=== PATIENT | male | born 1950 | race Caucasian/White ===

== ENCOUNTER 2017-02-17 18:23 | Emergency (ER) | payer MEDICAID ==
[~2017-02-17] VITALS: Ht 177.8 cm; Wt 90.9 kg
[~2017-02-17 18:23] MED LIST: CITA-311 PO; EMOL200L TP; FAMO20TA8 PO; FOLI1TAB16 PO; HYDR-569 PO; LACT-28 PO; LACTC PO; MIDO5TAB PO; MULT-1179 PO; NYSPWD TP; THI100T PO
[2017-02-17] MEDS ORDERED: normal saline 1000ML IV soln IVB ONE (20:40)
[2017-02-17 20:51] LABS: BASOPHILS % (AUTO) 0.4 % (0-1); EOSINOPHILS # (AUTO) 0.1 X10'3 (0-0.9); EOSINOPHILS % (AUTO) 1.1 % (0-6); HEMATOCRIT 37.9 % (42.0-52.0); HEMOGLOBIN 12.7 g/dl (14.0-17.9); LYMPHOCYTES # (AUTO) 3.9 X10'3 (1.1-4.8); LYMPHOCYTES % (AUTO) 60.7 % (21-51); MEAN CORPUSCULAR HEMOGLOBIN 33.8 PG (27.0-31.0); MEAN CORPUSCULAR HGB CONC 33.6 % (33.0-36.5); MEAN CORPUSCULAR VOLUME 100.7 FL (78-98); MONOCYTES # (AUTO) 0.5 X10'3 (0-0.9); MONOCYTES % (AUTO) 8.4 % (2-12); NEUTROPHILS # (AUTO) 1.9 X10'3 (1.8-7.7); NEUTROPHILS % (AUTO) 29.4 % (42-75); PLATELET COUNT 183 X10'3 (140-440); RED BLOOD COUNT 3.76 X10'6 (4.70-6.10); RED CELL DISTRIBUTION WIDTH 13.2 % (11.5-14.5); WHITE BLOOD COUNT 6.4 X10'3 (4.5-11.0)
[2017-02-17 21:01] LABS: ALANINE AMINOTRANSFERASE 44 U/L (12-78); ALBUMIN 3.5 G/DL (3.4-5.0); ALBUMIN/GLOBULIN RATIO 0.9 (1.1-1.5); ALKALINE PHOSPHATASE 91 IU/L (46-116); ANION GAP 10 (8-16); ASPARTATE AMINO TRANSFERASE 72 U/L (10-37); BILIRUBIN,TOTAL 0.3 MG/DL (0.1-1.0); BLOOD UREA NITROGEN 7 MG/DL (7-18); BUN/CREATININE RATIO 5.6 (5.4-32.0); CALCIUM 8.4 MG/DL (8.5-10.1); CHLORIDE 106 MMOL/L (99-107); CREATININE 1.26 MG/DL (0.60-1.10); GLUCOSE 99 MG/DL (70-104); POTASSIUM 4.3 MMOL/L (3.5-5.1); SODIUM 140 MMOL/L (135-145); TOTAL CARBON DIOXIDE 23.8 MMOL/L (24-32); TOTAL PROTEIN 7.4 G/DL (6.4-8.2); eGFR 58 ML/MIN
[2017-02-17] MEDS ORDERED: normal saline 1000ml 1,000 ML IV ONE (22:05)
[2017-02-18] MEDS ORDERED: thiamine 100mg tablet PO ONE (00:20)
[2017-02-18] MEDS ORDERED: magnesium oxide 400mg tablet PO ONE (00:20)
[2017-02-18 03:46] VITALS: BP 126/70
== END 2017-02-18 03:49 | disposition home or self-care (01) ==
LOC: ER 18:24
DX: F10.129 Alcohol abuse with intoxication, unspecified (principal); Y90.8 Blood alcohol level of 240 mg/100 ml or more; F11.10 Opioid abuse, uncomplicated; I25.10 Atherosclerotic heart disease of native coronary artery without angina pectoris; G89.29 Other chronic pain; Z88.8 Allergy status to other drugs, medicaments and biological substances; Z88.5 Allergy status to narcotic agent; Z79.899 Other long term (current) drug therapy; Z59.0 Homelessness; Z56.0 Unemployment, unspecified; Z85.9 Personal history of malignant neoplasm, unspecified
CPT/HCPCS: 36415; 70450; 80053; 80320; 85025; 96360; 99285; J7030

== ENCOUNTER 2017-11-30 08:54 | Inpatient (IN) | payer MEDICARE, MEDICAID ==
[~2017-11-30] VITALS: Ht 183.5 cm; Wt 60.0 kg
[~2017-11-30 08:54] MED LIST changes: +HYDR-4383 PO; -HYDR-569 PO
[2017-11-30 09:21] LABS: BASOPHILS # (AUTO) 0.1 X10'3 (0-0.2); BASOPHILS % (AUTO) 0.4 % (0-1); EOSINOPHILS % (AUTO) 0.2 % (0-6); HEMATOCRIT 38.6 % (42.0-52.0); HEMOGLOBIN 13.2 g/dl (14.0-17.9); LYMPHOCYTES # (AUTO) 0.4 X10'3 (1.1-4.8); LYMPHOCYTES % (AUTO) 3.2 % (21-51); MEAN CORPUSCULAR HEMOGLOBIN 34.5 PG (27.0-31.0); MEAN CORPUSCULAR HGB CONC 34.3 % (33.0-36.5); MEAN CORPUSCULAR VOLUME 100.6 FL (78-98); MEAN PLATELET VOLUME 8.9 FL (7.4-10.4); MONOCYTES # (AUTO) 0.5 X10'3 (0-0.9); MONOCYTES % (AUTO) 3.2 % (2-12); NEUTROPHILS # (AUTO) 13.1 X10'3 (1.8-7.7); PLATELET COUNT 109 X10'3 (140-440); RED BLOOD COUNT 3.83 X10'6 (4.70-6.10); RED CELL DISTRIBUTION WIDTH 13.8 % (11.5-14.5); WHITE BLOOD COUNT 14.1 X10'3 (4.5-11.0)
[2017-11-30 09:22] LABS: INR 1.1 INR; PARTIAL THROMBOPLASTIN TIME 31 SECONDS (22-32); PROTHROMBIN TIME 11.4 SECONDS (9.0-12.0)
[2017-11-30 09:29] LABS: ALANINE AMINOTRANSFERASE 33 U/L (12-78); ALBUMIN 2.7 G/DL (3.4-5.0); ALBUMIN/GLOBULIN RATIO 0.6 (1.1-1.5); ALKALINE PHOSPHATASE 49 IU/L (46-116); ANION GAP 14 (8-16); ASPARTATE AMINO TRANSFERASE 67 U/L (10-37); BILIRUBIN,TOTAL 2.7 MG/DL (0.1-1.0); BLOOD UREA NITROGEN 18 MG/DL (7-18); BUN/CREATININE RATIO 15.5 (5.4-32.0); CALCIUM 9.3 MG/DL (8.5-10.1); CHLORIDE 98 MMOL/L (99-107); CREATININE 1.16 MG/DL (0.60-1.10); GLUCOSE 146 MG/DL (70-104); POTASSIUM 3.3 MMOL/L (3.5-5.1); SODIUM 134 MMOL/L (135-145); TOTAL CARBON DIOXIDE 21.7 MMOL/L (24-32); TOTAL PROTEIN 7.2 G/DL (6.4-8.2); eGFR 63 ML/MIN
[2017-11-30 09:32] LABS: ETHANOL < 0.010 GM/DL (0.0-0.010); MAGNESIUM 1.7 MG/DL (1.5-2.4)
[2017-11-30] MEDS ORDERED: normal saline 1000ML IV soln IV ONE ×2 (09:40→11:05)
[2017-11-30 10:57] LABS: CLARITY,URINE SLIGHTLY CLOUDY (Clear)
[2017-11-30 10:59] LABS: UA COLLECTION TYPE FOLEY CATH
[2017-11-30 11:03] LABS: COLOR,URINE ORANGE (Yellow)
[2017-11-30] MEDS ORDERED: levoFLOXACIN-Levaquin 750MG/D5 150 ML IV ONE (11:05)
[2017-11-30] MEDS ORDERED: LORazepam 2 mg/ml vial IV ONE ×2 (11:05→11:15)
[2017-11-30 11:07] LABS: URINE AMPHETAMINE SCREEN NEGATIVE (Neg); URINE BARBITUATE SCREEN NEGATIVE (Neg); URINE BENZODIAZEPINES SCREEN NEGATIVE (Neg); URINE CANNABINOID SCREEN NEGATIVE (Neg); URINE COCAINE SCREEN NEGATIVE (Neg); URINE METHADONE SCREEN NEGATIVE (Neg); URINE OPIATE SCREEN NEGATIVE (Neg); URINE PHENCYCLIDINE SCREEN NEGATIVE (Neg)
[2017-11-30 11:13] LABS: MUCUS STRANDS FEW /LPF (Neg)
[2017-11-30] MEDS ORDERED: LORazepam 2 mg/ml vial ONE (11:15)
[2017-11-30] MEDS ORDERED: thiamine 100mg/ml 2ml inj. IV ONE (11:15)
[2017-11-30 11:17] LABS: COARSE GRANULAR CAST 0-3 /LPF (NEGATIVE); SQUAMOUS EPITHELIAL CELL,UR NONE SEEN /LPF (FEW)
[2017-11-30 11:18] LABS: TRANSITIONAL EPI CELLS,URINE FEW /HPF
[2017-11-30 11:22] LABS: AMORPHOUS URATES 1+; BACTERIA,URINE FEW /HPF (Neg); RBC,URINE NONE SEEN /HPF (0-2); WBC,URINE 0-4 /HPF (0-4)
[2017-11-30] MEDS ORDERED: cloNIDine 0.1 mg tablet PO PRN (12:05)
[2017-11-30] MEDS ORDERED: potassium Cl 40MEQ/NS 500ml 500 ML IV PRN (12:05)
[2017-11-30] MEDS ORDERED: mag hydrox/Alum hydrox/simeth 30ml oral suspension PO PRN (12:05)
[2017-11-30] MEDS ORDERED: metoclopramide 5 mg/ml inj IV PRN (12:05)
[2017-11-30] MEDS ORDERED: thiamine inj. 100 MG in normal saline 100ml IV soln 100 ML IV ONE (12:05)
[2017-11-30] MEDS ORDERED: potassium Cl 20 mEq SR tablet PO PRN ×2 (12:05)
[2017-11-30] MEDS ORDERED: magnesium 1gm/100ml D5W IVPB 100 ML IV PRN (12:05)
[2017-11-30] MEDS ORDERED: magnesium Cl slow-release 64mg tablet PO PRN (12:05)
[2017-11-30] MEDS ORDERED: magnesium 4gm in 100ml NS 100 ML IV PRN (12:05)
[2017-11-30] MEDS ORDERED: magnesium hydroxide 30ml (MOM) UD suspension PO PRN (12:05)
[2017-11-30] MEDS: LORazepam 2 mg/ml vial IV PRN ×6 (12:30→23:58)
[2017-11-30] MEDS: potassium Cl 20mEq in NS 1,000 ML IV SCH ×3 (12:33→23:45)
[2017-11-30] MEDS: folic acid inj. 2 MG, thiamine inj. 100 MG, MVI, adult No.4 with vit. K 10 ML in dextro... IV SCH ×4 (13:11)
[2017-11-30 14:30] VITALS: BP 127/73
[2017-11-30 16:00] VITALS: BP 104/69
[2017-11-30] MEDS ORDERED: acetaminophen 120MG suppository, rectal RC PRN (16:05)
[2017-11-30] MEDS: acetaminophen 650mg rectal suppository RC PRN ×2 (16:34→23:45)
[2017-11-30 19:00] VITALS: BP 116/71
[2017-11-30 23:00] VITALS: BP 133/91
[2017-12-01] MEDS: LORazepam 2 mg/ml vial IV PRN ×21 (00:24→22:22)
[2017-12-01] MEDS: haloperidol lactate 5mg/ml inj IM PRN ×3 (01:21→19:39)
[2017-12-01 03:00] VITALS: BP 107/73
[2017-12-01 05:46] LABS: BASOPHILS % (AUTO) 0.2 % (0-1); EOSINOPHILS % (AUTO) 0 % (0-6); HEMATOCRIT 32.3 % (42.0-52.0); HEMOGLOBIN 10.9 g/dl (14.0-17.9); LYMPHOCYTES # (AUTO) 0.7 X10'3 (1.1-4.8); LYMPHOCYTES % (AUTO) 9.3 % (21-51); MEAN CORPUSCULAR HGB CONC 33.8 % (33.0-36.5); MEAN CORPUSCULAR VOLUME 100.6 FL (78-98); MEAN PLATELET VOLUME 8.4 FL (7.4-10.4); MONOCYTES # (AUTO) 0.5 X10'3 (0-0.9); MONOCYTES % (AUTO) 6.9 % (2-12); NEUTROPHILS # (AUTO) 5.9 X10'3 (1.8-7.7); NEUTROPHILS % (AUTO) 83.6 % (42-75); PLATELET COUNT 77 X10'3 (140-440); RED BLOOD COUNT 3.21 X10'6 (4.70-6.10); RED CELL DISTRIBUTION WIDTH 14.2 % (11.5-14.5); WHITE BLOOD COUNT 7.1 X10'3 (4.5-11.0)
[2017-12-01 06:00] VITALS: BP 130/70
[2017-12-01 06:06] LABS: ALANINE AMINOTRANSFERASE 25 U/L (12-78); ALBUMIN 1.9 G/DL (3.4-5.0); ALBUMIN/GLOBULIN RATIO 0.5 (1.1-1.5); ALKALINE PHOSPHATASE 35 IU/L (46-116); AMYLASE 46 U/L (25-115); ANION GAP 8 (8-16); ASPARTATE AMINO TRANSFERASE 55 U/L (10-37); BLOOD UREA NITROGEN 13 MG/DL (7-18); BUN/CREATININE RATIO 14.1 (5.4-32.0); CALCIUM 8.3 MG/DL (8.5-10.1); CHLORIDE 108 MMOL/L (99-107); CREATININE 0.92 MG/DL (0.60-1.10); GLUCOSE 104 MG/DL (70-104); LIPASE 257 U/L (73-393); MAGNESIUM 1.7 MG/DL (1.5-2.4); PHOSPHORUS 1.7 MG/DL (2.3-4.5); SODIUM 141 MMOL/L (135-145); TOTAL CARBON DIOXIDE 24.8 MMOL/L (24-32); TOTAL PROTEIN 5.6 G/DL (6.4-8.2); eGFR 83 ML/MIN
[2017-12-01 06:52] LABS: POTASSIUM 2.8 MMOL/L (3.5-5.1)
[2017-12-01 07:19] LABS: PROTHROMBIN TIME 12.5 SECONDS (9.0-12.0)
[2017-12-01 07:20] LABS: INR 1.2 INR
[2017-12-01] MEDS: K and/or MAG REPLACEMENT MC SCH (08:00)
[2017-12-01] MEDS ORDERED: enoxaparin 40mg/0.4ml syringe SUBCUT SCH (08:00)
[2017-12-01] MEDS ORDERED: CefTRIAXone/D5W-Rocephin 1gm 50 ML IV SCH (08:00)
[2017-12-01] MEDS: folic acid inj. 2 MG, thiamine inj. 100 MG, MVI, adult No.4 with vit. K 10 ML in dextro... IV SCH ×4 (08:00)
[2017-12-01] MEDS: levoFLOXACIN-Levaquin 500mg/D5 100 ML IV SCH (09:18)
[2017-12-01] MEDS: potassium Cl 40MEQ/NS 500ml 500 ML IV PRN ×2 (09:57→14:30)
[2017-12-01 11:00] VITALS: BP 115/79
[2017-12-01 15:00] VITALS: BP 110/77
[2017-12-01] MEDS ORDERED: sodium phosphate inj. 30 MMOL in dextrose 5%-water 250 ML IV PRN (17:45)
[2017-12-01] MEDS ORDERED: Neutra Phos packet PO PRN (17:45)
[2017-12-01] MEDS ORDERED: sodium phosphate inj. 15 MMOL in dextrose 5%-water 150 ML IV PRN (17:45)
[2017-12-01] MEDS: metroNIDAZOLE-Flagyl 500mg/NS 100 ML IV SCH (17:57)
[2017-12-01] MEDS: potassium Cl 20mEq in NS 1,000 ML IV SCH ×2 (18:01→21:47)
[2017-12-01] MEDS ORDERED: potassium phosphate inj 15 MMOL in normal saline 250ml IV soln 245 ML IV ONE (18:30)
[2017-12-01 19:00] VITALS: BP 134/83
[2017-12-01] MEDS: acetaminophen 650mg rectal suppository RC PRN (19:10)
[2017-12-01 20:25] LABS: ABG BASE EXCESS -5.3 mmol/L (-2.0-3.0); ABG HCO3 17.4 mmol/L (22.0-26.0); ABG OXYGEN SATURATION 96.8 % (95-98); ABG PCO2 (T) 27.1 mmHg (35.0-48.0); ABG PH (T) 7.429 (7.350-7.450); ABG PO2 (T) 88.7 mmHg (83-108); FLOW 5 L/min; FMetHb 0.3 % (0.3-1.12); FO2Hb 96.5 % (94-100); PATIENT TEMPERATURE 37.9; TOTAL HEMOGLOBIN 11.6 G/dl (14.0-18.0)
[2017-12-01 23:00] VITALS: BP 91/58
[2017-12-02] MEDS: metroNIDAZOLE-Flagyl 500mg/NS 100 ML IV SCH ×3 (00:07→17:00)
[2017-12-02] MEDS: LORazepam 2 mg/ml vial IV PRN ×20 (00:07→23:00)
[2017-12-02 03:00] VITALS: BP 102/61
[2017-12-02] MEDS: haloperidol lactate 5mg/ml inj IM PRN ×2 (03:19→17:40)
[2017-12-02 06:00] VITALS: BP 124/76
[2017-12-02 06:04] LABS: BASOPHILS % (AUTO) 0.2 % (0-1); EOSINOPHILS % (AUTO) 0.4 % (0-6); HEMATOCRIT 33.3 % (42.0-52.0); HEMOGLOBIN 11.5 g/dl (14.0-17.9); LYMPHOCYTES # (AUTO) 0.6 X10'3 (1.1-4.8); LYMPHOCYTES % (AUTO) 13.5 % (21-51); MEAN CORPUSCULAR HEMOGLOBIN 35.1 PG (27.0-31.0); MEAN CORPUSCULAR HGB CONC 34.6 % (33.0-36.5); MEAN CORPUSCULAR VOLUME 101.4 FL (78-98); MEAN PLATELET VOLUME 8.9 FL (7.4-10.4); MONOCYTES # (AUTO) 0.5 X10'3 (0-0.9); MONOCYTES % (AUTO) 11.8 % (2-12); NEUTROPHILS # (AUTO) 3.1 X10'3 (1.8-7.7); NEUTROPHILS % (AUTO) 74.1 % (42-75); PLATELET COUNT 78 X10'3 (140-440); RED BLOOD COUNT 3.28 X10'6 (4.70-6.10); RED CELL DISTRIBUTION WIDTH 14.5 % (11.5-14.5); WHITE BLOOD COUNT 4.3 X10'3 (4.5-11.0)
[2017-12-02 06:20] LABS: ALANINE AMINOTRANSFERASE 29 U/L (12-78); ALBUMIN 1.7 G/DL (3.4-5.0); ALBUMIN/GLOBULIN RATIO 0.4 (1.1-1.5); ALKALINE PHOSPHATASE 45 IU/L (46-116); AMYLASE 77 U/L (25-115); ANION GAP 11 (8-16); ASPARTATE AMINO TRANSFERASE 62 U/L (10-37); BILIRUBIN,TOTAL 1.1 MG/DL (0.1-1.0); BLOOD UREA NITROGEN 10 MG/DL (7-18); BUN/CREATININE RATIO 14.7 (5.4-32.0); CALCIUM 8.3 MG/DL (8.5-10.1); CHLORIDE 113 MMOL/L (99-107); CREATININE 0.68 MG/DL (0.60-1.10); GLUCOSE 90 MG/DL (70-104); LIPASE 401 U/L (73-393); MAGNESIUM 1.8 MG/DL (1.5-2.4); PHOSPHORUS 1.7 MG/DL (2.3-4.5); POTASSIUM 3.1 MMOL/L (3.5-5.1); SODIUM 147 MMOL/L (135-145); TOTAL CARBON DIOXIDE 22.6 MMOL/L (24-32); TOTAL PROTEIN 5.6 G/DL (6.4-8.2); eGFR > 90 ML/MIN
[2017-12-02 06:53] LABS: INR 1.1 INR; PROTHROMBIN TIME 11.5 SECONDS (9.0-12.0)
[2017-12-02] MEDS: levoFLOXACIN-Levaquin 500mg/D5 100 ML IV SCH (08:00)
[2017-12-02] MEDS: folic acid inj. 2 MG, thiamine inj. 100 MG, MVI, adult No.4 with vit. K 10 ML in dextro... IV SCH ×12 (08:00→17:17)
[2017-12-02] MEDS: K and/or MAG REPLACEMENT MC SCH (08:00)
[2017-12-02] MEDS ORDERED: potassium phosphate inj 15 MMOL in normal saline 250ml IV soln 245 ML IV ONE ×2 (09:40→20:15)
[2017-12-02 11:00] VITALS: BP 141/90
[2017-12-02] MEDS: potassium Cl 20mEq in NS 1,000 ML IV SCH (14:01)
[2017-12-02 15:00] VITALS: BP 116/75
[2017-12-02 19:00] VITALS: BP 127/72
[2017-12-02] MEDS ORDERED: lactobacillus rhamnosus 10,000 MMU CELLS/CAPSULE PO SCH (20:00)
[2017-12-02 23:00] VITALS: BP 127/70
[2017-12-03] MEDS: potassium Cl 20mEq in NS 1,000 ML IV SCH ×3 (00:18→19:09)
[2017-12-03] MEDS: LORazepam 2 mg/ml vial IV PRN ×9 (00:18→21:34)
[2017-12-03] MEDS: metroNIDAZOLE-Flagyl 500mg/NS 100 ML IV SCH ×3 (00:18→16:11)
[2017-12-03] MEDS: acetaminophen 650mg rectal suppository RC PRN ×2 (02:47→16:11)
[2017-12-03 03:00] VITALS: BP 135/75
[2017-12-03 07:00] VITALS: BP 151/93
[2017-12-03 07:22] LABS: BASOPHILS % (AUTO) 0.4 % (0-1); EOSINOPHILS % (AUTO) 0.8 % (0-6); HEMATOCRIT 32.1 % (42.0-52.0); HEMOGLOBIN 10.9 g/dl (14.0-17.9); LYMPHOCYTES # (AUTO) 0.8 X10'3 (1.1-4.8); LYMPHOCYTES % (AUTO) 17.5 % (21-51); MEAN CORPUSCULAR HEMOGLOBIN 34.3 PG (27.0-31.0); MEAN CORPUSCULAR HGB CONC 33.8 % (33.0-36.5); MEAN CORPUSCULAR VOLUME 101.5 FL (78-98); MEAN PLATELET VOLUME 8.9 FL (7.4-10.4); MONOCYTES # (AUTO) 0.5 X10'3 (0-0.9); NEUTROPHILS # (AUTO) 3.4 X10'3 (1.8-7.7); NEUTROPHILS % (AUTO) 70.3 % (42-75); PLATELET COUNT 139 X10'3 (140-440); RED BLOOD COUNT 3.17 X10'6 (4.70-6.10); RED CELL DISTRIBUTION WIDTH 14.7 % (11.5-14.5); WHITE BLOOD COUNT 4.8 X10'3 (4.5-11.0)
[2017-12-03] MEDS: folic acid inj. 2 MG, thiamine inj. 100 MG, MVI, adult No.4 with vit. K 10 ML in dextro... IV SCH ×4 (07:31)
[2017-12-03 07:49] LABS: ALANINE AMINOTRANSFERASE 34 U/L (12-78); ALBUMIN 1.7 G/DL (3.4-5.0); ALBUMIN/GLOBULIN RATIO 0.4 (1.1-1.5); ALKALINE PHOSPHATASE 55 IU/L (46-116); AMYLASE 97 U/L (25-115); ANION GAP 12 (8-16); ASPARTATE AMINO TRANSFERASE 57 U/L (10-37); BILIRUBIN,TOTAL 1.5 MG/DL (0.1-1.0); BLOOD UREA NITROGEN 8 MG/DL (7-18); BUN/CREATININE RATIO 11.3 (5.4-32.0); CALCIUM 7.9 MG/DL (8.5-10.1); CHLORIDE 113 MMOL/L (99-107); CREATININE 0.71 MG/DL (0.60-1.10); GLUCOSE 101 MG/DL (70-104); LIPASE 459 U/L (73-393); MAGNESIUM 1.6 MG/DL (1.5-2.4); PHOSPHORUS 2.5 MG/DL (2.3-4.5); POTASSIUM 3.2 MMOL/L (3.5-5.1); SODIUM 148 MMOL/L (135-145); TOTAL CARBON DIOXIDE 22.6 MMOL/L (24-32); TOTAL PROTEIN 5.5 G/DL (6.4-8.2); eGFR > 90 ML/MIN
[2017-12-03] MEDS: K and/or MAG REPLACEMENT MC SCH (08:00)
[2017-12-03 08:03] LABS: INR 1.1 INR; PROTHROMBIN TIME 11.7 SECONDS (9.0-12.0)
[2017-12-03] MEDS: levoFLOXACIN-Levaquin 500mg/D5 100 ML IV SCH (09:12)
[2017-12-03 11:00] VITALS: BP 148/105
[2017-12-03 11:25] VITALS: BP 142/89
[2017-12-03 15:00] VITALS: BP 169/102
[2017-12-03] MEDS ORDERED: potassium Cl 40MEQ/NS 500ml 500 ML IV PRN (17:25)
[2017-12-03 18:00] VITALS: BP 141/86
[2017-12-03] MEDS: potassium Cl 40MEQ/NS 500ml 500 ML IV PRN (19:20)
[2017-12-04] MEDS: LORazepam 2 mg/ml vial IV PRN ×7 (00:01→19:32)
[2017-12-04] MEDS: metroNIDAZOLE-Flagyl 500mg/NS 100 ML IV SCH ×4 (00:01→23:17)
[2017-12-04] MEDS: potassium Cl 20mEq in NS 1,000 ML IV SCH ×3 (00:01→19:25)
[2017-12-04 02:00] VITALS: BP 124/78
[2017-12-04 06:07] LABS: BASOPHILS % (AUTO) 0.3 % (0-1); EOSINOPHILS % (AUTO) 0.8 % (0-6); HEMATOCRIT 32.1 % (42.0-52.0); HEMOGLOBIN 10.8 g/dl (14.0-17.9); LYMPHOCYTES % (AUTO) 22.1 % (21-51); MEAN CORPUSCULAR HGB CONC 33.7 % (33.0-36.5); MEAN CORPUSCULAR VOLUME 101.1 FL (78-98); MEAN PLATELET VOLUME 9.2 FL (7.4-10.4); MONOCYTES # (AUTO) 0.5 X10'3 (0-0.9); NEUTROPHILS # (AUTO) 3.1 X10'3 (1.8-7.7); NEUTROPHILS % (AUTO) 66.8 % (42-75); PLATELET COUNT 178 X10'3 (140-440); RED BLOOD COUNT 3.17 X10'6 (4.70-6.10); RED CELL DISTRIBUTION WIDTH 14.1 % (11.5-14.5); WHITE BLOOD COUNT 4.6 X10'3 (4.5-11.0)
[2017-12-04 06:13] LABS: INR 1.2 INR; PROTHROMBIN TIME 12.8 SECONDS (9.0-12.0)
[2017-12-04 06:26] LABS: ALANINE AMINOTRANSFERASE 25 U/L (12-78); ALBUMIN 1.6 G/DL (3.4-5.0); ALBUMIN/GLOBULIN RATIO 0.4 (1.1-1.5); ALKALINE PHOSPHATASE 51 IU/L (46-116); AMYLASE 142 U/L (25-115); ANION GAP 10 (8-16); ASPARTATE AMINO TRANSFERASE 36 U/L (10-37); BILIRUBIN,TOTAL 1.3 MG/DL (0.1-1.0); BLOOD UREA NITROGEN 8 MG/DL (7-18); BUN/CREATININE RATIO 13.6 (5.4-32.0); CALCIUM 7.8 MG/DL (8.5-10.1); CHLORIDE 112 MMOL/L (99-107); CREATININE 0.59 MG/DL (0.60-1.10); GLUCOSE 93 MG/DL (70-104); LIPASE 419 U/L (73-393); MAGNESIUM 1.4 MG/DL (1.5-2.4); PHOSPHORUS 2.4 MG/DL (2.3-4.5); POTASSIUM 3.2 MMOL/L (3.5-5.1); SODIUM 144 MMOL/L (135-145); TOTAL CARBON DIOXIDE 21.8 MMOL/L (24-32); TOTAL PROTEIN 5.4 G/DL (6.4-8.2); eGFR > 90 ML/MIN
[2017-12-04 07:00] VITALS: BP 145/91
[2017-12-04] MEDS: K and/or MAG REPLACEMENT MC SCH (07:35)
[2017-12-04] MEDS ORDERED: magnesium 4gm in 100ml NS 100 ML IV PRN (07:55)
[2017-12-04] MEDS: levoFLOXACIN-Levaquin 500mg/D5 100 ML IV SCH (08:08)
[2017-12-04] MEDS: folic acid inj. 2 MG, thiamine inj. 100 MG, MVI, adult No.4 with vit. K 10 ML in dextro... IV SCH ×4 (08:20)
[2017-12-04 11:00] VITALS: BP 134/83
[2017-12-04] MEDS: potassium Cl 40MEQ/NS 500ml 500 ML IV PRN (12:08)
[2017-12-04 15:00] VITALS: BP 138/91
[2017-12-04 19:00] VITALS: BP 141/93
[2017-12-04 23:00] VITALS: BP 141/93
[2017-12-04] MEDS: haloperidol lactate 5mg/ml inj IM PRN (23:16)
[2017-12-05] VITALS (7 sets, daily range): BP systolic 143–162; BP diastolic 91–103
[2017-12-05] MEDS: LORazepam 2 mg/ml vial IV PRN ×3 (01:18→20:25)
[2017-12-05] MEDS: potassium Cl 20mEq in NS 1,000 ML IV SCH ×2 (06:20→20:13)
[2017-12-05 06:46] LABS: BASOPHILS % (AUTO) 0.3 % (0-1); EOSINOPHILS # (AUTO) 0.1 X10'3 (0-0.9); EOSINOPHILS % (AUTO) 1.2 % (0-6); HEMATOCRIT 33.9 % (42.0-52.0); HEMOGLOBIN 11.6 g/dl (14.0-17.9); LYMPHOCYTES # (AUTO) 1.2 X10'3 (1.1-4.8); LYMPHOCYTES % (AUTO) 22.8 % (21-51); MEAN CORPUSCULAR HEMOGLOBIN 34.5 PG (27.0-31.0); MEAN CORPUSCULAR HGB CONC 34.2 % (33.0-36.5); MEAN CORPUSCULAR VOLUME 100.8 FL (78-98); MEAN PLATELET VOLUME 9.2 FL (7.4-10.4); MONOCYTES # (AUTO) 0.4 X10'3 (0-0.9); MONOCYTES % (AUTO) 6.8 % (2-12); NEUTROPHILS # (AUTO) 3.7 X10'3 (1.8-7.7); NEUTROPHILS % (AUTO) 68.9 % (42-75); PLATELET COUNT 234 X10'3 (140-440); RED BLOOD COUNT 3.36 X10'6 (4.70-6.10); RED CELL DISTRIBUTION WIDTH 14.2 % (11.5-14.5); WHITE BLOOD COUNT 5.4 X10'3 (4.5-11.0)
[2017-12-05 06:47] LABS: INR 1.2 INR; PROTHROMBIN TIME 12.5 SECONDS (9.0-12.0)
[2017-12-05 07:00] LABS: ALANINE AMINOTRANSFERASE 19 U/L (12-78); ALBUMIN 1.8 G/DL (3.4-5.0); ALBUMIN/GLOBULIN RATIO 0.5 (1.1-1.5); ALKALINE PHOSPHATASE 56 IU/L (46-116); AMYLASE 116 U/L (25-115); ANION GAP 13 (8-16); ASPARTATE AMINO TRANSFERASE 30 U/L (10-37); BILIRUBIN,TOTAL 1.1 MG/DL (0.1-1.0); BLOOD UREA NITROGEN 9 MG/DL (7-18); BUN/CREATININE RATIO 13.2 (5.4-32.0); CALCIUM 7.7 MG/DL (8.5-10.1); CHLORIDE 110 MMOL/L (99-107); CREATININE 0.68 MG/DL (0.60-1.10); GLUCOSE 92 MG/DL (70-104); LIPASE 497 U/L (73-393); MAGNESIUM 1.8 MG/DL (1.5-2.4); PHOSPHORUS 2.6 MG/DL (2.3-4.5); POTASSIUM 3.6 MMOL/L (3.5-5.1); SODIUM 143 MMOL/L (135-145); TOTAL CARBON DIOXIDE 20.4 MMOL/L (24-32); TOTAL PROTEIN 5.8 G/DL (6.4-8.2); eGFR > 90 ML/MIN
[2017-12-05] MEDS: metroNIDAZOLE-Flagyl 500mg/NS 100 ML IV SCH ×2 (07:31→16:11)
[2017-12-05] MEDS: levoFLOXACIN-Levaquin 500mg/D5 100 ML IV SCH (07:31)
[2017-12-05] MEDS: folic acid inj. 2 MG, thiamine inj. 100 MG, MVI, adult No.4 with vit. K 10 ML in dextro... IV SCH ×4 (07:32)
[2017-12-05] MEDS: K and/or MAG REPLACEMENT MC SCH (08:00)
[2017-12-06] VITALS (7 sets, daily range): BP systolic 110–144; BP diastolic 64–89
[2017-12-06] MEDS: metroNIDAZOLE-Flagyl 500mg/NS 100 ML IV SCH ×3 (00:07→16:15)
[2017-12-06] MEDS: LORazepam 2 mg/ml vial IV PRN ×3 (03:38→22:18)
[2017-12-06 05:33] LABS: BASOPHILS % (AUTO) 0.4 % (0-1); EOSINOPHILS # (AUTO) 0.1 X10'3 (0-0.9); EOSINOPHILS % (AUTO) 1.5 % (0-6); HEMATOCRIT 32.7 % (42.0-52.0); HEMOGLOBIN 11.2 g/dl (14.0-17.9); LYMPHOCYTES # (AUTO) 0.8 X10'3 (1.1-4.8); LYMPHOCYTES % (AUTO) 14.2 % (21-51); MEAN CORPUSCULAR HEMOGLOBIN 34.5 PG (27.0-31.0); MEAN CORPUSCULAR HGB CONC 34.1 % (33.0-36.5); MEAN CORPUSCULAR VOLUME 101.3 FL (78-98); MEAN PLATELET VOLUME 9.1 FL (7.4-10.4); MONOCYTES # (AUTO) 0.4 X10'3 (0-0.9); MONOCYTES % (AUTO) 8.1 % (2-12); NEUTROPHILS # (AUTO) 4.2 X10'3 (1.8-7.7); NEUTROPHILS % (AUTO) 75.8 % (42-75); PLATELET COUNT 242 X10'3 (140-440); RED BLOOD COUNT 3.23 X10'6 (4.70-6.10); RED CELL DISTRIBUTION WIDTH 14.3 % (11.5-14.5); WHITE BLOOD COUNT 5.6 X10'3 (4.5-11.0)
[2017-12-06 05:47] LABS: ALBUMIN 1.7 G/DL (3.4-5.0); ANION GAP 11 (8-16); BLOOD UREA NITROGEN 7 MG/DL (7-18); BUN/CREATININE RATIO 9.9 (5.4-32.0); CALCIUM 7.4 MG/DL (8.5-10.1); CHLORIDE 109 MMOL/L (99-107); CREATININE 0.71 MG/DL (0.60-1.10); GLUCOSE 89 MG/DL (70-104); POTASSIUM 3.4 MMOL/L (3.5-5.1); SODIUM 141 MMOL/L (135-145); TOTAL CARBON DIOXIDE 21.2 MMOL/L (24-32); eGFR > 90 ML/MIN
[2017-12-06] MEDS: levoFLOXACIN-Levaquin 500mg/D5 100 ML IV SCH (07:03)
[2017-12-06] MEDS: folic acid inj. 2 MG, thiamine inj. 100 MG, MVI, adult No.4 with vit. K 10 ML in dextro... IV SCH ×4 (07:03)
[2017-12-06] MEDS: K and/or MAG REPLACEMENT MC SCH (07:18)
[2017-12-06] MEDS: potassium Cl 20mEq in NS 1,000 ML IV SCH ×2 (08:01→21:28)
[2017-12-06] MEDS: enoxaparin 40mg/0.4ml syringe SUBCUT SCH (10:48)
[2017-12-06] MEDS: lactose-reduced food (Ensure Enlive) - 237ml bottle PO SCH ×2 (13:00→18:05)
[2017-12-06] MEDS: thiamine 100mg tablet PO SCH (19:26)
[2017-12-06] MEDS: acetaminophen 325mg tablet PO PRN (22:18)
[2017-12-07] MEDS: metroNIDAZOLE-Flagyl 500mg/NS 100 ML IV SCH ×2 (00:41→08:18)
[2017-12-07 07:13] VITALS: BP 126/86
[2017-12-07 07:56] LABS: ALANINE AMINOTRANSFERASE 18 U/L (12-78); ALBUMIN 1.7 G/DL (3.4-5.0); ALBUMIN/GLOBULIN RATIO 0.5 (1.1-1.5); ALKALINE PHOSPHATASE 52 IU/L (46-116); ANION GAP 10 (8-16); ASPARTATE AMINO TRANSFERASE 28 U/L (10-37); BLOOD UREA NITROGEN 7 MG/DL (7-18); BUN/CREATININE RATIO 10.9 (5.4-32.0); CALCIUM 7.3 MG/DL (8.5-10.1); CHLORIDE 108 MMOL/L (99-107); CREATININE 0.64 MG/DL (0.60-1.10); GLUCOSE 92 MG/DL (70-104); POTASSIUM 3.4 MMOL/L (3.5-5.1); SODIUM 140 MMOL/L (135-145); TOTAL CARBON DIOXIDE 21.8 MMOL/L (24-32); TOTAL PROTEIN 5.4 G/DL (6.4-8.2); eGFR > 90 ML/MIN
[2017-12-07] MEDS: lactose-reduced food (Ensure Enlive) - 237ml bottle PO SCH ×3 (08:00→18:00)
[2017-12-07] MEDS: K and/or MAG REPLACEMENT MC SCH (08:00)
[2017-12-07] MEDS ORDERED: levoFLOXACIN-Levaquin 750MG/D5 150 ML IV SCH (08:00)
[2017-12-07] MEDS: folic acid 1mg tablet PO SCH (08:17)
[2017-12-07] MEDS: thiamine 100mg tablet PO SCH ×2 (08:17→19:57)
[2017-12-07] MEDS: enoxaparin 40mg/0.4ml syringe SUBCUT SCH (08:18)
[2017-12-07] MEDS: potassium Cl 20mEq in NS 1,000 ML IV SCH (08:19)
[2017-12-07] MEDS ORDERED: potassium Cl 40MEQ/NS 500ml 500 ML IV PRN ×2 (08:55)
[2017-12-07] MEDS ORDERED: potassium Cl 20 mEq SR tablet PO PRN (08:55)
[2017-12-07] MEDS: potassium Cl 20 mEq SR tablet PO PRN ×2 (10:50→16:24)
[2017-12-07] MEDS: piperacillin/tazo 4.5gm/100ml 100 ML IV SCH ×2 (11:47→15:31)
[2017-12-07 12:00] VITALS: BP 108/65
[2017-12-07] MEDS: LORazepam 2 mg/ml vial IV PRN ×2 (12:33→16:23)
[2017-12-07 13:46] LABS: CLARITY,URINE CLOUDY (Clear); COLOR,URINE YELLOW (Yellow); GLUCOSE, URINE NEGATIVE (Neg); KETONES,URINE NEGATIVE (Neg); LEUKOCYTE ESTERASE ,URINE NEGATIVE (Neg); NITRITES, URINE NEGATIVE (Neg); OCCULT BLOOD,URINE LARGE (Neg); PH,URINE 5.5 (4.8-8.0); PROTEIN,URINE 30 mg/dl (Neg); UROBILINOGEN,URINE 0.2 E.U/dL (0.2-1.0)
[2017-12-07 14:28] LABS: UA COLLECTION TYPE NON-SPECIFIED
[2017-12-07 14:31] LABS: BACTERIA,URINE NONE SEEN /HPF (Neg); RBC,URINE 50-100 /HPF (0-2); SQUAMOUS EPITHELIAL CELL,UR FEW /LPF (FEW); WBC,URINE 0-4 /HPF (0-4)
[2017-12-07 15:00] VITALS: BP 111/62
[2017-12-07 18:00] VITALS: BP 116/69
[2017-12-07 22:00] VITALS: BP 123/76
[2017-12-08] MEDS: potassium Cl 20mEq in NS 1,000 ML IV SCH ×2 (00:04→16:09)
[2017-12-08] MEDS: potassium Cl 20 mEq SR tablet PO PRN (00:07)
[2017-12-08 02:00] VITALS: BP 118/81
[2017-12-08] MEDS: LORazepam 2 mg/ml vial IV PRN ×2 (05:05→16:18)
[2017-12-08 06:00] VITALS: BP 128/100
[2017-12-08] MEDS: K and/or MAG REPLACEMENT MC SCH (08:00)
[2017-12-08] MEDS: lactobacillus rhamnosus 10,000 MMU CELLS/CAPSULE PO SCH ×2 (08:10→20:58)
[2017-12-08] MEDS: thiamine 100mg tablet PO SCH ×2 (08:11→20:58)
[2017-12-08] MEDS: folic acid 1mg tablet PO SCH (08:11)
[2017-12-08] MEDS: lactose-reduced food (Ensure Enlive) - 237ml bottle PO SCH ×3 (08:16→14:00)
[2017-12-08] MEDS: enoxaparin 40mg/0.4ml syringe SUBCUT SCH (08:16)
[2017-12-08] MEDS: piperacillin/tazo 4.5gm/100ml 100 ML IV SCH ×4 (08:19→23:58)
[2017-12-08 08:26] LABS: BASOPHILS # (AUTO) 0.1 X10'3 (0-0.2); BASOPHILS % (AUTO) 2.2 % (0-1); EOSINOPHILS % (AUTO) 0.5 % (0-6); HEMATOCRIT 33.5 % (42.0-52.0); HEMOGLOBIN 11.1 g/dl (14.0-17.9); LYMPHOCYTES # (AUTO) 0.8 X10'3 (1.1-4.8); LYMPHOCYTES % (AUTO) 14.9 % (21-51); MEAN CORPUSCULAR HGB CONC 33.2 % (33.0-36.5); MEAN CORPUSCULAR VOLUME 102.4 FL (78-98); MEAN PLATELET VOLUME 9.3 FL (7.4-10.4); MONOCYTES # (AUTO) 0.4 X10'3 (0-0.9); MONOCYTES % (AUTO) 7.5 % (2-12); NEUTROPHILS # (AUTO) 4.2 X10'3 (1.8-7.7); NEUTROPHILS % (AUTO) 74.9 % (42-75); PLATELET COUNT 289 X10'3 (140-440); RED BLOOD COUNT 3.27 X10'6 (4.70-6.10); RED CELL DISTRIBUTION WIDTH 14.3 % (11.5-14.5); WHITE BLOOD COUNT 5.6 X10'3 (4.5-11.0)
[2017-12-08 08:33] LABS: ALANINE AMINOTRANSFERASE 21 U/L (12-78); ALBUMIN 1.8 G/DL (3.4-5.0); ALBUMIN/GLOBULIN RATIO 0.4 (1.1-1.5); ALKALINE PHOSPHATASE 56 IU/L (46-116); ANION GAP 7 (8-16); ASPARTATE AMINO TRANSFERASE 28 U/L (10-37); BILIRUBIN,TOTAL 0.9 MG/DL (0.1-1.0); BLOOD UREA NITROGEN 5 MG/DL (7-18); CALCIUM 7.6 MG/DL (8.5-10.1); CHLORIDE 107 MMOL/L (99-107); CREATININE 0.71 MG/DL (0.60-1.10); GLUCOSE 105 MG/DL (70-104); POTASSIUM 3.5 MMOL/L (3.5-5.1); SODIUM 137 MMOL/L (135-145); TOTAL CARBON DIOXIDE 23.3 MMOL/L (24-32); TOTAL PROTEIN 6.1 G/DL (6.4-8.2); eGFR > 90 ML/MIN
[2017-12-08 11:00] VITALS: BP 128/81
[2017-12-08 17:47] VITALS: BP 121/76
[2017-12-08 19:00] VITALS: BP 128/56
[2017-12-08] MEDS: acetaminophen 325mg tablet PO PRN (22:18)
[2017-12-08 23:00] VITALS: BP 136/68
[2017-12-09 03:00] VITALS: BP 104/65
[2017-12-09 05:57] LABS: BASOPHILS # (AUTO) 0.1 X10'3 (0-0.2); BASOPHILS % (AUTO) 1.3 % (0-1); EOSINOPHILS # (AUTO) 0.1 X10'3 (0-0.9); EOSINOPHILS % (AUTO) 1.4 % (0-6); HEMATOCRIT 30.9 % (42.0-52.0); HEMOGLOBIN 10.4 g/dl (14.0-17.9); LYMPHOCYTES % (AUTO) 19.7 % (21-51); MEAN CORPUSCULAR HEMOGLOBIN 33.8 PG (27.0-31.0); MEAN CORPUSCULAR HGB CONC 33.7 % (33.0-36.5); MEAN CORPUSCULAR VOLUME 100.5 FL (78-98); MEAN PLATELET VOLUME 9.2 FL (7.4-10.4); MONOCYTES # (AUTO) 0.4 X10'3 (0-0.9); MONOCYTES % (AUTO) 7.9 % (2-12); NEUTROPHILS # (AUTO) 3.7 X10'3 (1.8-7.7); NEUTROPHILS % (AUTO) 69.7 % (42-75); PLATELET COUNT 293 X10'3 (140-440); RED BLOOD COUNT 3.08 X10'6 (4.70-6.10); RED CELL DISTRIBUTION WIDTH 14.1 % (11.5-14.5); WHITE BLOOD COUNT 5.3 X10'3 (4.5-11.0)
[2017-12-09 06:00] VITALS: BP 124/72
[2017-12-09 06:41] LABS: ALANINE AMINOTRANSFERASE 25 U/L (12-78); ALBUMIN 1.7 G/DL (3.4-5.0); ALBUMIN/GLOBULIN RATIO 0.4 (1.1-1.5); ALKALINE PHOSPHATASE 53 IU/L (46-116); ANION GAP 10 (8-16); ASPARTATE AMINO TRANSFERASE 44 U/L (10-37); BILIRUBIN,TOTAL 0.9 MG/DL (0.1-1.0); BLOOD UREA NITROGEN 5 MG/DL (7-18); BUN/CREATININE RATIO 7.6 (5.4-32.0); CHLORIDE 106 MMOL/L (99-107); CREATININE 0.66 MG/DL (0.60-1.10); GLUCOSE 89 MG/DL (70-104); POTASSIUM 3.8 MMOL/L (3.5-5.1); SODIUM 137 MMOL/L (135-145); TOTAL CARBON DIOXIDE 21.4 MMOL/L (24-32); TOTAL PROTEIN 5.8 G/DL (6.4-8.2); eGFR > 90 ML/MIN
[2017-12-09] MEDS: lactobacillus rhamnosus 10,000 MMU CELLS/CAPSULE PO SCH ×2 (07:33→20:18)
[2017-12-09] MEDS: folic acid 1mg tablet PO SCH (07:33)
[2017-12-09] MEDS: thiamine 100mg tablet PO SCH ×2 (07:33→20:18)
[2017-12-09] MEDS: potassium Cl 20mEq in NS 1,000 ML IV SCH ×2 (07:34→21:54)
[2017-12-09] MEDS: piperacillin/tazo 4.5gm/100ml 100 ML IV SCH ×3 (07:34→23:41)
[2017-12-09] MEDS: enoxaparin 40mg/0.4ml syringe SUBCUT SCH ×2 (07:35→07:40)
[2017-12-09] MEDS: lactose-reduced food (Ensure Enlive) - 237ml bottle PO SCH ×3 (07:35→18:00)
[2017-12-09] MEDS: K and/or MAG REPLACEMENT MC SCH (08:00)
[2017-12-09] MEDS: LORazepam 2 mg/ml vial IV PRN ×2 (09:23→14:50)
[2017-12-09 11:00] VITALS: BP 126/81
[2017-12-09 15:00] VITALS: BP 105/72
[2017-12-09 19:00] VITALS: BP 107/69
[2017-12-09] MEDS: mirtazapine 15mg tablet PO SCH (20:18)
[2017-12-09 23:00] VITALS: BP 127/76
[2017-12-09] MEDS: temazepam 15mg capsule PO PRN (23:41)
[2017-12-10] MEDS: LORazepam 2 mg/ml vial IV PRN ×5 (00:33→20:38)
[2017-12-10 03:00] VITALS: BP 121/84
[2017-12-10 06:00] VITALS: BP 103/70
[2017-12-10 06:37] LABS: ALANINE AMINOTRANSFERASE 35 U/L (12-78); ALBUMIN 1.8 G/DL (3.4-5.0); ALBUMIN/GLOBULIN RATIO 0.4 (1.1-1.5); ALKALINE PHOSPHATASE 67 IU/L (46-116); ANION GAP 10 (8-16); ASPARTATE AMINO TRANSFERASE 60 U/L (10-37); BILIRUBIN,TOTAL 0.8 MG/DL (0.1-1.0); BLOOD UREA NITROGEN 4 MG/DL (7-18); BUN/CREATININE RATIO 5.7 (5.4-32.0); CHLORIDE 104 MMOL/L (99-107); GLUCOSE 88 MG/DL (70-104); POTASSIUM 3.9 MMOL/L (3.5-5.1); SODIUM 137 MMOL/L (135-145); TOTAL CARBON DIOXIDE 22.8 MMOL/L (24-32); TOTAL PROTEIN 6.2 G/DL (6.4-8.2); eGFR > 90 ML/MIN
[2017-12-10] MEDS: K and/or MAG REPLACEMENT MC SCH (07:55)
[2017-12-10] MEDS: thiamine 100mg tablet PO SCH ×2 (08:05→20:38)
[2017-12-10] MEDS: folic acid 1mg tablet PO SCH (08:05)
[2017-12-10] MEDS: lactobacillus rhamnosus 10,000 MMU CELLS/CAPSULE PO SCH ×2 (08:05→20:38)
[2017-12-10] MEDS: enoxaparin 40mg/0.4ml syringe SUBCUT SCH (08:05)
[2017-12-10] MEDS: piperacillin/tazo 4.5gm/100ml 100 ML IV SCH ×3 (08:05→23:10)
[2017-12-10] MEDS: lactose-reduced food (Ensure Enlive) - 237ml bottle PO SCH ×3 (08:13→18:00)
[2017-12-10 11:00] VITALS: BP 98/70
[2017-12-10] MEDS: potassium Cl 20mEq in NS 1,000 ML IV SCH (14:14)
[2017-12-10 15:00] VITALS: BP 119/63
[2017-12-10 19:00] VITALS: BP 119/77
[2017-12-10] MEDS: mirtazapine 15mg tablet PO SCH (20:38)
[2017-12-10 23:00] VITALS: BP 103/61
[2017-12-10] MEDS: temazepam 15mg capsule PO PRN (23:10)
[2017-12-11] MEDS: LORazepam 2 mg/ml vial IV PRN ×3 (00:42→20:39)
[2017-12-11 03:00] VITALS: BP 122/71
[2017-12-11 06:00] VITALS: BP 93/57
[2017-12-11 07:19] LABS: ALBUMIN 1.9 G/DL (3.4-5.0); ANION GAP 10 (8-16); BILIRUBIN,TOTAL 0.8 MG/DL (0.1-1.0); BLOOD UREA NITROGEN 4 MG/DL (7-18); BUN/CREATININE RATIO 5.7 (5.4-32.0); CALCIUM 8.5 MG/DL (8.5-10.1); CHLORIDE 105 MMOL/L (99-107); GLUCOSE 93 MG/DL (70-104); POTASSIUM 3.9 MMOL/L (3.5-5.1); SODIUM 137 MMOL/L (135-145); TOTAL CARBON DIOXIDE 22.4 MMOL/L (24-32); TOTAL PROTEIN 6.8 G/DL (6.4-8.2); eGFR > 90 ML/MIN
[2017-12-11 07:20] LABS: ALANINE AMINOTRANSFERASE 44 U/L (12-78); ALBUMIN/GLOBULIN RATIO 0.4 (1.1-1.5); ALKALINE PHOSPHATASE 65 IU/L (46-116); ASPARTATE AMINO TRANSFERASE 72 U/L (10-37)
[2017-12-11] MEDS: piperacillin/tazo 4.5gm/100ml 100 ML IV SCH ×2 (07:58→17:39)
[2017-12-11] MEDS: lactose-reduced food (Ensure Enlive) - 237ml bottle PO SCH ×3 (08:00→18:00)
[2017-12-11] MEDS: lactobacillus rhamnosus 10,000 MMU CELLS/CAPSULE PO SCH ×2 (08:00→20:14)
[2017-12-11] MEDS: folic acid 1mg tablet PO SCH (08:00)
[2017-12-11] MEDS: thiamine 100mg tablet PO SCH ×3 (08:00→20:14)
[2017-12-11] MEDS: K and/or MAG REPLACEMENT MC SCH (08:00)
[2017-12-11] MEDS: enoxaparin 40mg/0.4ml syringe SUBCUT SCH (08:01)
[2017-12-11] MEDS: potassium Cl 20mEq in NS 1,000 ML IV SCH ×3 (08:38→20:30)
[2017-12-11 11:00] VITALS: BP 110/64
[2017-12-11 18:00] VITALS: BP 105/61
[2017-12-11] MEDS: temazepam 15mg capsule PO PRN (20:14)
[2017-12-11] MEDS: mirtazapine 15mg tablet PO SCH (20:14)
[2017-12-11 22:00] VITALS: BP 131/83
[2017-12-12] VITALS (7 sets, daily range): BP systolic 107–164; BP diastolic 60–95
[2017-12-12] MEDS: potassium Cl 20mEq in NS 1,000 ML IV SCH ×2 (00:07→15:57)
[2017-12-12] MEDS: piperacillin/tazo 4.5gm/100ml 100 ML IV SCH ×4 (00:08→23:51)
[2017-12-12] MEDS: LORazepam 2 mg/ml vial IV PRN ×2 (00:59→20:48)
[2017-12-12] MEDS: lactose-reduced food (Ensure Enlive) - 237ml bottle PO SCH ×3 (08:00→19:00)
[2017-12-12] MEDS: K and/or MAG REPLACEMENT MC SCH (08:00)
[2017-12-12 08:15] LABS: BASOPHILS % (AUTO) 0.9 % (0-1); EOSINOPHILS # (AUTO) 0.1 X10'3 (0-0.9); EOSINOPHILS % (AUTO) 1.4 % (0-6); HEMOGLOBIN 12.1 g/dl (14.0-17.9); LYMPHOCYTES # (AUTO) 1.4 X10'3 (1.1-4.8); LYMPHOCYTES % (AUTO) 28.1 % (21-51); MEAN CORPUSCULAR HGB CONC 32.7 % (33.0-36.5); MEAN CORPUSCULAR VOLUME 100.8 FL (78-98); MEAN PLATELET VOLUME 9.3 FL (7.4-10.4); MONOCYTES # (AUTO) 0.6 X10'3 (0-0.9); MONOCYTES % (AUTO) 11.3 % (2-12); NEUTROPHILS # (AUTO) 2.9 X10'3 (1.8-7.7); NEUTROPHILS % (AUTO) 58.3 % (42-75); PLATELET COUNT 461 X10'3 (140-440); RED BLOOD COUNT 3.67 X10'6 (4.70-6.10); RED CELL DISTRIBUTION WIDTH 13.9 % (11.5-14.5); WHITE BLOOD COUNT 4.9 X10'3 (4.5-11.0)
[2017-12-12] MEDS: lactobacillus rhamnosus 10,000 MMU CELLS/CAPSULE PO SCH ×2 (09:10→20:27)
[2017-12-12] MEDS: thiamine 100mg tablet PO SCH ×2 (09:11→20:28)
[2017-12-12] MEDS: folic acid 1mg tablet PO SCH (09:11)
[2017-12-12] MEDS: enoxaparin 40mg/0.4ml syringe SUBCUT SCH (09:11)
[2017-12-12 09:43] LABS: ALANINE AMINOTRANSFERASE 49 U/L (12-78); ALBUMIN 2.1 G/DL (3.4-5.0); ALBUMIN/GLOBULIN RATIO 0.4 (1.1-1.5); ALKALINE PHOSPHATASE 72 IU/L (46-116); ANION GAP 9 (8-16); ASPARTATE AMINO TRANSFERASE 80 U/L (10-37); BILIRUBIN,TOTAL 0.7 MG/DL (0.1-1.0); BLOOD UREA NITROGEN 3 MG/DL (7-18); BUN/CREATININE RATIO 4.1 (5.4-32.0); CALCIUM 8.3 MG/DL (8.5-10.1); CHLORIDE 103 MMOL/L (99-107); CREATININE 0.73 MG/DL (0.60-1.10); GLUCOSE 92 MG/DL (70-104); POTASSIUM 3.8 MMOL/L (3.5-5.1); SODIUM 137 MMOL/L (135-145); TOTAL CARBON DIOXIDE 24.8 MMOL/L (24-32); TOTAL PROTEIN 7.2 G/DL (6.4-8.2); eGFR > 90 ML/MIN
[2017-12-12] MEDS: temazepam 15mg capsule PO PRN (20:28)
[2017-12-12] MEDS: mirtazapine 15mg tablet PO SCH (20:28)
[2017-12-12] MEDS: ondansetron/PF 4mg/2ml inj IV PRN ×2 (20:33→20:48)
[2017-12-13] MEDS: LORazepam 2 mg/ml vial IV PRN (00:33)
[2017-12-13 03:00] VITALS: BP 124/84
[2017-12-13] MEDS: potassium Cl 20mEq in NS 1,000 ML IV SCH (05:35)
[2017-12-13 06:00] VITALS: BP 164/98
[2017-12-13] MEDS: piperacillin/tazo 4.5gm/100ml 100 ML IV SCH ×3 (07:11→23:53)
[2017-12-13] MEDS: folic acid 1mg tablet PO SCH (07:18)
[2017-12-13] MEDS: enoxaparin 40mg/0.4ml syringe SUBCUT SCH (07:18)
[2017-12-13] MEDS: lactobacillus rhamnosus 10,000 MMU CELLS/CAPSULE PO SCH ×2 (07:18→20:10)
[2017-12-13] MEDS: thiamine 100mg tablet PO SCH ×2 (07:18→20:10)
[2017-12-13] MEDS: K and/or MAG REPLACEMENT MC SCH (07:20)
[2017-12-13] MEDS: lactose-reduced food (Ensure Enlive) - 237ml bottle PO SCH ×3 (08:33→18:09)
[2017-12-13 08:52] LABS: BASOPHILS % (AUTO) 0.9 % (0-1); EOSINOPHILS # (AUTO) 0.1 X10'3 (0-0.9); EOSINOPHILS % (AUTO) 1.4 % (0-6); HEMATOCRIT 33.5 % (42.0-52.0); HEMOGLOBIN 11.1 g/dl (14.0-17.9); LYMPHOCYTES # (AUTO) 1.6 X10'3 (1.1-4.8); LYMPHOCYTES % (AUTO) 33.3 % (21-51); MEAN CORPUSCULAR HEMOGLOBIN 32.9 PG (27.0-31.0); MEAN CORPUSCULAR HGB CONC 33.1 % (33.0-36.5); MEAN CORPUSCULAR VOLUME 99.5 FL (78-98); MEAN PLATELET VOLUME 9.1 FL (7.4-10.4); MONOCYTES # (AUTO) 0.5 X10'3 (0-0.9); MONOCYTES % (AUTO) 11.3 % (2-12); NEUTROPHILS # (AUTO) 2.5 X10'3 (1.8-7.7); NEUTROPHILS % (AUTO) 53.1 % (42-75); PLATELET COUNT 507 X10'3 (140-440); RED BLOOD COUNT 3.37 X10'6 (4.70-6.10); RED CELL DISTRIBUTION WIDTH 13.7 % (11.5-14.5); WHITE BLOOD COUNT 4.8 X10'3 (4.5-11.0)
[2017-12-13 09:05] LABS: ANION GAP 10 (8-16); BLOOD UREA NITROGEN 4 MG/DL (7-18); BUN/CREATININE RATIO 4.7 (5.4-32.0); CALCIUM 8.1 MG/DL (8.5-10.1); CHLORIDE 105 MMOL/L (99-107); CREATININE 0.86 MG/DL (0.60-1.10); GLUCOSE 134 MG/DL (70-104); POTASSIUM 3.5 MMOL/L (3.5-5.1); SODIUM 136 MMOL/L (135-145); eGFR 89 ML/MIN
[2017-12-13 11:00] VITALS: BP 112/70
[2017-12-13] MEDS ORDERED: Dextrose 10%-water IV solution 1,000 ML IV PRN (12:31)
[2017-12-13] MEDS ORDERED: fat emulsion IV 181.82 ML, MVI, adult No.4 with vit. K 4.55 ML, Trace element-5 inj. 0.... IV SCH ×4 (12:31)
[2017-12-13] MEDS ORDERED: magnesium 1gm/100ml D5W IVPB 100 ML IV PRN (12:35)
[2017-12-13] MEDS ORDERED: magnesium Cl slow-release 64mg tablet PO PRN (12:35)
[2017-12-13] MEDS ORDERED: magnesium 4gm in 100ml NS 100 ML IV PRN (12:35)
[2017-12-13 13:56] LABS: ALANINE AMINOTRANSFERASE 46 U/L (12-78); ALBUMIN/GLOBULIN RATIO 0.4 (1.1-1.5); ALKALINE PHOSPHATASE 66 IU/L (46-116); ANION GAP 6 (8-16); ASPARTATE AMINO TRANSFERASE 76 U/L (10-37); BILIRUBIN,TOTAL 0.6 MG/DL (0.1-1.0); BLOOD UREA NITROGEN 4 MG/DL (7-18); BUN/CREATININE RATIO 4.6 (5.4-32.0); CALCIUM 8.3 MG/DL (8.5-10.1); CHLORIDE 106 MMOL/L (99-107); CREATININE 0.87 MG/DL (0.60-1.10); GLUCOSE 91 MG/DL (70-104); PHOSPHORUS 3.6 MG/DL (2.3-4.5); POTASSIUM 4.2 MMOL/L (3.5-5.1); PREALBUMIN 9.6 MG/DL (19-36); SODIUM 139 MMOL/L (135-145); TOTAL CARBON DIOXIDE 26.6 MMOL/L (24-32); TRIGLYCERIDES 140 MG/DL (20-135); eGFR 88 ML/MIN
[2017-12-13 15:00] VITALS: BP 103/68
[2017-12-13 19:00] VITALS: BP 137/62
[2017-12-13] MEDS: mirtazapine 15mg tablet PO SCH (20:10)
[2017-12-13] MEDS: fat emulsion IV 200 ML, MVI, adult No.4 with vit. K 10 ML, Trace element-5 inj. 1 ML in... IV SCH ×4 (20:10)
[2017-12-13 23:00] VITALS: BP 103/66
[2017-12-14 03:00] VITALS: BP 103/77
[2017-12-14 06:00] VITALS: BP 111/79
[2017-12-14] MEDS: K and/or MAG REPLACEMENT MC SCH (08:00)
[2017-12-14] MEDS: lactose-reduced food (Ensure Enlive) - 237ml bottle PO SCH ×3 (08:00→18:00)
[2017-12-14] MEDS: piperacillin/tazo 4.5gm/100ml 100 ML IV SCH ×2 (08:34→16:56)
[2017-12-14] MEDS: folic acid 1mg tablet PO SCH (08:35)
[2017-12-14] MEDS: thiamine 100mg tablet PO SCH ×2 (08:35→21:29)
[2017-12-14] MEDS: enoxaparin 40mg/0.4ml syringe SUBCUT SCH (08:35)
[2017-12-14] MEDS: lactobacillus rhamnosus 10,000 MMU CELLS/CAPSULE PO SCH ×2 (08:35→21:29)
[2017-12-14] MEDS: potassium Cl 20mEq in NS 1,000 ML IV SCH (08:50)
[2017-12-14 10:14] LABS: BASOPHILS % (AUTO) 0.8 % (0-1); EOSINOPHILS # (AUTO) 0.1 X10'3 (0-0.9); EOSINOPHILS % (AUTO) 1.7 % (0-6); HEMATOCRIT 34.9 % (42.0-52.0); HEMOGLOBIN 11.8 g/dl (14.0-17.9); LYMPHOCYTES # (AUTO) 1.7 X10'3 (1.1-4.8); LYMPHOCYTES % (AUTO) 36.5 % (21-51); MEAN CORPUSCULAR HEMOGLOBIN 33.6 PG (27.0-31.0); MEAN CORPUSCULAR HGB CONC 33.8 % (33.0-36.5); MEAN CORPUSCULAR VOLUME 99.5 FL (78-98); MEAN PLATELET VOLUME 8.4 FL (7.4-10.4); MONOCYTES # (AUTO) 0.6 X10'3 (0-0.9); MONOCYTES % (AUTO) 12.2 % (2-12); NEUTROPHILS # (AUTO) 2.2 X10'3 (1.8-7.7); NEUTROPHILS % (AUTO) 48.8 % (42-75); PLATELET COUNT 456 X10'3 (140-440); RED BLOOD COUNT 3.51 X10'6 (4.70-6.10); RED CELL DISTRIBUTION WIDTH 13.8 % (11.5-14.5); WHITE BLOOD COUNT 4.5 X10'3 (4.5-11.0)
[2017-12-14 10:29] LABS: ALANINE AMINOTRANSFERASE 46 U/L (12-78); ALBUMIN 2.2 G/DL (3.4-5.0); ALBUMIN/GLOBULIN RATIO 0.4 (1.1-1.5); ALKALINE PHOSPHATASE 74 IU/L (46-116); ANION GAP 7 (8-16); ASPARTATE AMINO TRANSFERASE 76 U/L (10-37); BILIRUBIN,TOTAL 0.7 MG/DL (0.1-1.0); BLOOD UREA NITROGEN 3 MG/DL (7-18); BUN/CREATININE RATIO 3.5 (5.4-32.0); CALCIUM 8.7 MG/DL (8.5-10.1); CHLORIDE 104 MMOL/L (99-107); CREATININE 0.85 MG/DL (0.60-1.10); GLUCOSE 95 MG/DL (70-104); PHOSPHORUS 3.2 MG/DL (2.3-4.5); POTASSIUM 4.2 MMOL/L (3.5-5.1); SODIUM 136 MMOL/L (135-145); TOTAL CARBON DIOXIDE 24.9 MMOL/L (24-32); TOTAL PROTEIN 7.6 G/DL (6.4-8.2); eGFR 90 ML/MIN
[2017-12-14 11:00] VITALS: BP 110/77
[2017-12-14 15:00] VITALS: BP 113/57
[2017-12-14 18:00] VITALS: BP 106/61
[2017-12-14] MEDS: mirtazapine 15mg tablet PO SCH (21:29)
[2017-12-14 22:00] VITALS: BP 127/76
[2017-12-15] MEDS: piperacillin/tazo 4.5gm/100ml 100 ML IV SCH ×2 (00:11→08:32)
[2017-12-15 02:00] VITALS: BP 120/68
[2017-12-15] MEDS: potassium Cl 20mEq in NS 1,000 ML IV SCH ×2 (05:41→19:58)
[2017-12-15 06:00] VITALS: BP 103/56
[2017-12-15] MEDS: K and/or MAG REPLACEMENT MC SCH (08:00)
[2017-12-15] MEDS: folic acid 1mg tablet PO SCH (08:29)
[2017-12-15] MEDS: thiamine 100mg tablet PO SCH ×2 (08:30→20:02)
[2017-12-15] MEDS: lactobacillus rhamnosus 10,000 MMU CELLS/CAPSULE PO SCH ×2 (08:30→20:02)
[2017-12-15] MEDS: enoxaparin 40mg/0.4ml syringe SUBCUT SCH (08:31)
[2017-12-15] MEDS: lactose-reduced food (Ensure Enlive) - 237ml bottle PO SCH ×3 (08:46→18:00)
[2017-12-15] MEDS: fat emulsion IV 200 ML, MVI, adult No.4 with vit. K 10 ML, Trace element-5 inj. 1 ML in... IV SCH ×4 (08:47)
[2017-12-15 11:00] VITALS: BP 128/88
[2017-12-15 13:13] LABS: ALANINE AMINOTRANSFERASE 38 U/L (12-78); ALBUMIN 2.3 G/DL (3.4-5.0); ALBUMIN/GLOBULIN RATIO 0.4 (1.1-1.5); ALKALINE PHOSPHATASE 69 IU/L (46-116); ANION GAP 11 (8-16); ASPARTATE AMINO TRANSFERASE 62 U/L (10-37); BILIRUBIN,TOTAL 0.5 MG/DL (0.1-1.0); BLOOD UREA NITROGEN 6 MG/DL (7-18); BUN/CREATININE RATIO 8.2 (5.4-32.0); CHLORIDE 105 MMOL/L (99-107); CREATININE 0.73 MG/DL (0.60-1.10); GLUCOSE 102 MG/DL (70-104); MAGNESIUM 2.1 MG/DL (1.5-2.4); PREALBUMIN 11.4 MG/DL (19-36); SODIUM 138 MMOL/L (135-145); TOTAL CARBON DIOXIDE 22.1 MMOL/L (24-32); TOTAL PROTEIN 7.9 G/DL (6.4-8.2); TRIGLYCERIDES 152 MG/DL (20-135); eGFR > 90 ML/MIN
[2017-12-15 13:14] LABS: POTASSIUM 4.1 MMOL/L (3.5-5.1)
[2017-12-15 15:00] VITALS: BP 135/83
[2017-12-15 18:00] VITALS: BP 140/86
[2017-12-15] MEDS: mirtazapine 15mg tablet PO SCH (20:02)
[2017-12-15 22:00] VITALS: BP 130/88
[2017-12-16 02:00] VITALS: BP 108/65
[2017-12-16 06:00] VITALS: BP 117/88
[2017-12-16 07:53] LABS: ALBUMIN 2.3 G/DL (3.4-5.0); ANION GAP 9 (8-16); BLOOD UREA NITROGEN 6 MG/DL (7-18); BUN/CREATININE RATIO 9.2 (5.4-32.0); CHLORIDE 105 MMOL/L (99-107); CREATININE 0.65 MG/DL (0.60-1.10); GLUCOSE 96 MG/DL (70-104); POTASSIUM 3.9 MMOL/L (3.5-5.1); SODIUM 137 MMOL/L (135-145); eGFR > 90 ML/MIN
[2017-12-16] MEDS: K and/or MAG REPLACEMENT MC SCH (08:00)
[2017-12-16] MEDS: lactobacillus rhamnosus 10,000 MMU CELLS/CAPSULE PO SCH ×2 (08:27→20:18)
[2017-12-16] MEDS: enoxaparin 40mg/0.4ml syringe SUBCUT SCH (08:27)
[2017-12-16] MEDS: folic acid 1mg tablet PO SCH (08:28)
[2017-12-16] MEDS: thiamine 100mg tablet PO SCH ×2 (08:28→20:18)
[2017-12-16] MEDS: lactose-reduced food (Ensure Enlive) - 237ml bottle PO SCH ×3 (08:30→18:00)
[2017-12-16] MEDS: potassium Cl 20mEq in NS 1,000 ML IV SCH (08:56)
[2017-12-16 11:00] VITALS: BP 147/92
[2017-12-16] MEDS ORDERED: dextrose 50%-water 50ml dispensing syringe IV PRN ×2 (14:35)
[2017-12-16] MEDS ORDERED: MESSAGE TO PHARMACY PO ONE (14:35)
[2017-12-16] MEDS ORDERED: dextrose ORAL solution 15 GM/59 ML bottle PO PRN ×2 (14:35)
[2017-12-16] MEDS ORDERED: insulin Lispro (HumaLOG) vial - multi-dose SQ SCH (14:35)
[2017-12-16] MEDS ORDERED: glucagon, human recombinant 1mg kit SUBCUT PRN (14:35)
[2017-12-16 15:00] VITALS: BP 98/66
[2017-12-16 15:10] LABS: HEMOGLOBIN A1C 4.7 % (4.5-6.2)
[2017-12-16 18:00] VITALS: BP 112/79
[2017-12-16] MEDS: mirtazapine 15mg tablet PO SCH (20:18)
[2017-12-16] MEDS: insulin glargine (Lantus) pen - multi-dose SQ SCH (21:00)
[2017-12-16 22:00] VITALS: BP 145/94
[2017-12-16] MEDS: fat emulsion IV 200 ML, MVI, adult No.4 with vit. K 10 ML, Trace element-5 inj. 1 ML in... IV SCH ×4 (22:30)
[2017-12-17] MEDS: potassium Cl 20mEq in NS 1,000 ML IV SCH ×2 (00:34→15:25)
[2017-12-17 02:00] VITALS: BP 130/66
[2017-12-17 06:00] VITALS: BP 107/69
[2017-12-17 06:28] LABS: ALBUMIN 2.5 G/DL (3.4-5.0); ANION GAP 10 (8-16); BLOOD UREA NITROGEN 7 MG/DL (7-18); BUN/CREATININE RATIO 9.6 (5.4-32.0); CALCIUM 8.8 MG/DL (8.5-10.1); CHLORIDE 103 MMOL/L (99-107); CREATININE 0.73 MG/DL (0.60-1.10); GLUCOSE 101 MG/DL (70-104); SODIUM 135 MMOL/L (135-145); TOTAL CARBON DIOXIDE 22.3 MMOL/L (24-32); eGFR > 90 ML/MIN
[2017-12-17] MEDS: lactose-reduced food (Ensure Enlive) - 237ml bottle PO SCH ×3 (08:00→18:00)
[2017-12-17] MEDS: enoxaparin 40mg/0.4ml syringe SUBCUT SCH (08:00)
[2017-12-17] MEDS: K and/or MAG REPLACEMENT MC SCH (08:00)
[2017-12-17] MEDS: lactobacillus rhamnosus 10,000 MMU CELLS/CAPSULE PO SCH ×2 (08:20→21:34)
[2017-12-17] MEDS: folic acid 1mg tablet PO SCH (08:20)
[2017-12-17] MEDS: thiamine 100mg tablet PO SCH ×2 (08:20→21:34)
[2017-12-17 11:00] VITALS: BP 121/84
[2017-12-17 15:00] VITALS: BP 108/82
[2017-12-17 18:00] VITALS: BP 107/74
[2017-12-17] MEDS: insulin glargine (Lantus) pen - multi-dose SQ SCH (21:00)
[2017-12-17] MEDS: mirtazapine 15mg tablet PO SCH (21:34)
[2017-12-17 22:00] VITALS: BP 131/78
[2017-12-17] MEDS: fat emulsion IV 200 ML, MVI, adult No.4 with vit. K 10 ML, Trace element-5 inj. 1 ML in... IV SCH ×4 (23:49)
[2017-12-18 02:00] VITALS: BP 105/76
[2017-12-18] MEDS: potassium Cl 20mEq in NS 1,000 ML IV SCH ×2 (03:20→20:38)
[2017-12-18 06:00] VITALS: BP 113/72
[2017-12-18] MEDS: lactose-reduced food (Ensure Enlive) - 237ml bottle PO SCH ×3 (08:00→18:43)
[2017-12-18] MEDS: K and/or MAG REPLACEMENT MC SCH (08:00)
[2017-12-18] MEDS: folic acid 1mg tablet PO SCH (10:17)
[2017-12-18] MEDS: lactobacillus rhamnosus 10,000 MMU CELLS/CAPSULE PO SCH ×2 (10:17→20:38)
[2017-12-18] MEDS: thiamine 100mg tablet PO SCH ×2 (10:17→20:37)
[2017-12-18] MEDS: enoxaparin 40mg/0.4ml syringe SUBCUT SCH ×2 (10:18→11:06)
[2017-12-18 11:00] VITALS: BP 104/59
[2017-12-18] MEDS: fat emulsion IV 200 ML, MVI, adult No.4 with vit. K 10 ML, Trace element-5 inj. 1 ML in... IV SCH ×4 (14:18)
[2017-12-18 15:00] VITALS: BP 105/78
[2017-12-18 19:00] VITALS: BP 119/55
[2017-12-18] MEDS: mirtazapine 15mg tablet PO SCH (20:38)
[2017-12-18] MEDS: insulin glargine (Lantus) pen - multi-dose SQ SCH (20:38)
[2017-12-18 23:00] VITALS: BP 123/76
[2017-12-19 03:00] VITALS: BP 119/82
[2017-12-19 06:00] VITALS: BP 116/79
[2017-12-19] MEDS: K and/or MAG REPLACEMENT MC SCH (08:00)
[2017-12-19] MEDS: lactobacillus rhamnosus 10,000 MMU CELLS/CAPSULE PO SCH ×3 (08:16→20:31)
[2017-12-19] MEDS: thiamine 100mg tablet PO SCH ×3 (08:16→20:31)
[2017-12-19] MEDS: folic acid 1mg tablet PO SCH (08:16)
[2017-12-19] MEDS: enoxaparin 40mg/0.4ml syringe SUBCUT SCH (08:18)
[2017-12-19 09:12] LABS: ALANINE AMINOTRANSFERASE 42 U/L (12-78); ALBUMIN 2.2 G/DL (3.4-5.0); ALBUMIN/GLOBULIN RATIO 0.4 (1.1-1.5); ALKALINE PHOSPHATASE 78 IU/L (46-116); ANION GAP 9 (8-16); ASPARTATE AMINO TRANSFERASE 67 U/L (10-37); BILIRUBIN,TOTAL 0.4 MG/DL (0.1-1.0); BLOOD UREA NITROGEN 9 MG/DL (7-18); CALCIUM 8.5 MG/DL (8.5-10.1); CHLORIDE 106 MMOL/L (99-107); CREATININE 0.82 MG/DL (0.60-1.10); GLUCOSE 113 MG/DL (70-104); MAGNESIUM 1.6 MG/DL (1.5-2.4); PHOSPHORUS 3.8 MG/DL (2.3-4.5); POTASSIUM 3.5 MMOL/L (3.5-5.1); PREALBUMIN 13.1 MG/DL (19-36); SODIUM 138 MMOL/L (135-145); TOTAL CARBON DIOXIDE 22.7 MMOL/L (24-32); TOTAL PROTEIN 7.1 G/DL (6.4-8.2); TRIGLYCERIDES 119 MG/DL (20-135); eGFR > 90 ML/MIN
[2017-12-19] MEDS: potassium Cl 20mEq in NS 1,000 ML IV SCH (09:53)
[2017-12-19] MEDS: lactose-reduced food (Ensure Enlive) - 237ml bottle PO SCH ×3 (09:53→18:20)
[2017-12-19 11:00] VITALS: BP 117/81
[2017-12-19 15:00] VITALS: BP 151/72
[2017-12-19 19:10] VITALS: BP 115/68
[2017-12-19] MEDS: nystatin 15 GM powder TP SCH (20:31)
[2017-12-19] MEDS: mirtazapine 15mg tablet PO SCH (20:31)
[2017-12-19] MEDS: insulin glargine (Lantus) pen - multi-dose SQ SCH (20:37)
[2017-12-19 22:00] VITALS: BP 130/84
[2017-12-20 02:56] VITALS: BP 121/84
[2017-12-20 06:00] VITALS: BP 113/72
[2017-12-20] MEDS: K and/or MAG REPLACEMENT MC SCH (08:00)
[2017-12-20] MEDS: enoxaparin 40mg/0.4ml syringe SUBCUT SCH (08:00)
[2017-12-20] MEDS: thiamine 100mg tablet PO SCH ×2 (08:35→20:31)
[2017-12-20] MEDS: lactobacillus rhamnosus 10,000 MMU CELLS/CAPSULE PO SCH ×2 (08:35→20:31)
[2017-12-20] MEDS: folic acid 1mg tablet PO SCH (08:35)
[2017-12-20] MEDS: nystatin 15 GM powder TP SCH ×3 (08:40→21:00)
[2017-12-20] MEDS: lactose-reduced food (Ensure Enlive) - 237ml bottle PO SCH ×3 (08:40→18:03)
[2017-12-20 11:00] VITALS: BP 122/78
[2017-12-20 15:00] VITALS: BP 120/69
[2017-12-20 19:00] VITALS: BP 123/88
[2017-12-20] MEDS: mirtazapine 15mg tablet PO SCH (20:31)
[2017-12-20] MEDS: insulin glargine (Lantus) pen - multi-dose SQ SCH (21:00)
[2017-12-20 23:00] VITALS: BP 122/74
[2017-12-21 04:40] LABS: BASOPHILS # (AUTO) 0.1 X10'3 (0-0.2); BASOPHILS % (AUTO) 1.3 % (0-1); EOSINOPHILS # (AUTO) 0.1 X10'3 (0-0.9); EOSINOPHILS % (AUTO) 3.2 % (0-6); HEMATOCRIT 34.8 % (42.0-52.0); HEMOGLOBIN 11.7 g/dl (14.0-17.9); LYMPHOCYTES # (AUTO) 1.9 X10'3 (1.1-4.8); LYMPHOCYTES % (AUTO) 44.9 % (21-51); MEAN CORPUSCULAR HEMOGLOBIN 33.1 PG (27.0-31.0); MEAN CORPUSCULAR HGB CONC 33.7 % (33.0-36.5); MEAN CORPUSCULAR VOLUME 98.5 FL (78-98); MEAN PLATELET VOLUME 8.6 FL (7.4-10.4); MONOCYTES # (AUTO) 0.6 X10'3 (0-0.9); MONOCYTES % (AUTO) 14.2 % (2-12); NEUTROPHILS # (AUTO) 1.6 X10'3 (1.8-7.7); NEUTROPHILS % (AUTO) 36.4 % (42-75); PLATELET COUNT 304 X10'3 (140-440); RED BLOOD COUNT 3.53 X10'6 (4.70-6.10); RED CELL DISTRIBUTION WIDTH 13.5 % (11.5-14.5); WHITE BLOOD COUNT 4.3 X10'3 (4.5-11.0)
[2017-12-21 06:56] VITALS: BP 142/70
[2017-12-21 07:04] VITALS: BP 142/70
[2017-12-21] MEDS: lactobacillus rhamnosus 10,000 MMU CELLS/CAPSULE PO SCH ×2 (08:00→20:38)
[2017-12-21] MEDS: thiamine 100mg tablet PO SCH ×2 (08:00→20:38)
[2017-12-21] MEDS: folic acid 1mg tablet PO SCH (08:00)
[2017-12-21] MEDS: K and/or MAG REPLACEMENT MC SCH (08:00)
[2017-12-21] MEDS: nystatin 15 GM powder TP SCH ×3 (08:14→20:38)
[2017-12-21] MEDS: lactose-reduced food (Ensure Enlive) - 237ml bottle PO SCH ×3 (08:17→18:50)
[2017-12-21] MEDS: enoxaparin 40mg/0.4ml syringe SUBCUT SCH (08:18)
[2017-12-21 11:56] VITALS: BP 123/77
[2017-12-21 15:00] VITALS: BP 122/69
[2017-12-21 19:15] VITALS: BP 132/76
[2017-12-21] MEDS: mirtazapine 15mg tablet PO SCH (20:38)
[2017-12-21] MEDS: insulin glargine (Lantus) pen - multi-dose SQ SCH (21:00)
[2017-12-21 23:00] VITALS: BP 98/66
[2017-12-22 04:00] VITALS: BP 125/75
[2017-12-22 06:00] VITALS: BP 94/57
[2017-12-22] MEDS: folic acid 1mg tablet PO SCH (08:00)
[2017-12-22] MEDS: thiamine 100mg tablet PO SCH ×2 (08:00→21:26)
[2017-12-22] MEDS: lactobacillus rhamnosus 10,000 MMU CELLS/CAPSULE PO SCH ×2 (08:00→21:26)
[2017-12-22] MEDS: K and/or MAG REPLACEMENT MC SCH (08:00)
[2017-12-22] MEDS: enoxaparin 40mg/0.4ml syringe SUBCUT SCH (08:01)
[2017-12-22] MEDS: lactose-reduced food (Ensure Enlive) - 237ml bottle PO SCH ×4 (08:01→19:00)
[2017-12-22] MEDS: nystatin 15 GM powder TP SCH ×3 (08:02→21:00)
[2017-12-22 11:00] VITALS: BP 113/68
[2017-12-22 15:00] VITALS: BP 103/67
[2017-12-22 19:00] VITALS: BP 114/81
[2017-12-22] MEDS: insulin glargine (Lantus) pen - multi-dose SQ SCH (21:00)
[2017-12-22] MEDS: mirtazapine 15mg tablet PO SCH (21:26)
[2017-12-22 23:00] VITALS: BP 120/76
[2017-12-23 03:00] VITALS: BP 105/72
[2017-12-23 06:00] VITALS: BP 127/90
== END 2017-12-23 09:40 | disposition home or self-care (01) | DRG 871 ==
LOC: EDBD 08:54 → ER 08:55 → ED HOLD 12:01 → PCU 3S 14:08
PROVIDERS: ADMIT Internal Medicine; ATTEND Internal Medicine
DX: A41.9 Sepsis, unspecified organism (principal); J69.0 Pneumonitis due to inhalation of food and vomit; J96.01 Acute respiratory failure with hypoxia; G93.41 Metabolic encephalopathy; F10.231 Alcohol dependence with withdrawal delirium; E44.0 Moderate protein-calorie malnutrition; E87.2 Acidosis; N17.9 Acute kidney failure, unspecified; R47.01 Aphasia; I47.2 Ventricular tachycardia; Z68.1 Body mass index [BMI] 19.9 or less, adult; E86.0 Dehydration; F03.90 Unspecified dementia, unspecified severity, without behavioral disturbance, psychotic disturbance, mood disturbance, and anxiety; I25.10 Atherosclerotic heart disease of native coronary artery without angina pectoris; E83.42 Hypomagnesemia; Z60.2 Problems related to living alone; E83.39 Other disorders of phosphorus metabolism; E87.6 Hypokalemia; F11.90 Opioid use, unspecified, uncomplicated; G89.29 Other chronic pain; M54.9 Dorsalgia, unspecified; Z59.0 Homelessness; Z88.5 Allergy status to narcotic agent; Z79.899 Other long term (current) drug therapy; Z71.41 Alcohol abuse counseling and surveillance of alcoholic
CPT/HCPCS: 36415; 36600; 70450; 71045; 74018; 76604; 76700; 80048; 80053; 80305; 80320; 81001; 82140; 82150; 82803; 82948; 83036; 83605; 83690; 83735; 84100; 84132; 84134; 84145; 84478; 84484; 85018; 85025; 85610; 85730; 87040; 87070; 92616; 93005; 93306; 96361; 96365; 96375; 96376; 97110; 97116; 97161; 97530; 97535; 99291; G0378; J0696; J1630; J1650; J1815; J1956; J2060; J2405; J2543; J3411; J3475; J3480; J3490; J7030; J7060